=== PATIENT | female | born 1970 | race African-American/Black ===

== ENCOUNTER 2022-02-20 17:24 | Emergency (ER) | payer SELFPAY ==
[~2022-02-20] VITALS: Ht 165.1 cm; Wt 102.0 kg
[~2022-02-20 17:24] MED LIST: ETOMIDATE 2MG/ML 10ML VIAL IV ONE
[2022-02-20] MEDS ORDERED: SODIUM CHLORIDE 0.9% 1,000 ML IV ONE (17:30)
[2022-02-20] MEDS ORDERED: ETOMIDATE 2MG/ML 10ML VIAL IV ONE (17:30)
[2022-02-20] MEDS ORDERED: ROCURONIUM BROMIDE 10MG/ML VIAL 5ML IV ONE (17:30)
[2022-02-20] MEDS ORDERED: PROPOFOL 10MG/ML 100ML 100 ML IV ONE (17:30)
[2022-02-20] MEDS ORDERED: PROPOFOL 10MG/ML 100ML 100 ML IV NR (17:45)
[2022-02-20] MEDS ORDERED: ETOMIDATE 2MG/ML 10ML VIAL IV NR (17:45)
[2022-02-20 17:53] VITALS: BP 172/148
[2022-02-20 17:54] LABS: HEMATOCRIT. 27.6 % (36.0-48.0); HEMOGLOBIN. 8.8 g/dL (12.0-16.0); MEAN CORPUSCULAR HEMOGLOBIN 27.8 pg (28.0-32.0); MEAN CORPUSCULAR VOLUME 87.5 fL (81.0-99.0); MEAN PLATELET VOLUME 11.8 fl (7.4-10.4); PLATELET 188 x1000/uL (130-400); RED BLOOD CELL COUNT 3.15 mill/uL (4.2-5.4); RED CELL DISTRIBUTION WIDTH 17.1 % (11.6-14.6)
[2022-02-20 18:04] LABS: CHLORIDE 108 mEq/L (98-107)
[2022-02-20 18:13] LABS: CREATINE KINASE 276 IU/L (26-192)
[2022-02-20] MEDS ORDERED: ACETAMINOPHEN 650MG SUPP PR ONE (18:15)
[2022-02-20 19:33] LABS: PLATELET ESTIMATE NORMAL
== END 2022-02-20 18:09 ==
LOC: ER 17:24
DX: I46.9 Cardiac arrest, cause unspecified (principal); J80 Acute respiratory distress syndrome; R50.9 Fever, unspecified; E87.5 Hyperkalemia; N17.9 Acute kidney failure, unspecified; R40.2432 Glasgow coma scale score 3-8, at arrival to emergency department
CPT/HCPCS: 31500; 36415; 80053; 82550; 83605; 84484; 85025; 93005; 99291; J3490; J7030